=== PATIENT | male | born 1985 | race Caucasian/White ===

== ENCOUNTER 2022-02-25 10:03 | Emergency (ER) | payer OTHER, SELFPAY ==
[2022-02-25 10:56] VITALS: BP 140/88; PULSE 105; RESP 18; TEMP 36.7; O2SAT 99
--- NOTE | 2022-02-25 11:24 | ED.GENADULT ---
HPI - General Adult General Chief complaint: Upper Respiratory Infection Stated complaint: sorethroat Time Seen by Provider: 02/25/22 11:24 Source: patient Mode of arrival: ambulatory Limitations: no limitations History of Present Illness HPI narrative: [age] year old male patient presents to [facility] painful sore throat spray yesterday afternoon off with some congestion. Patient states sore throat with corresponding o'clock this morning. Denies any fevers that he is aware of. Denies any chest pain, shortness of breath. Denies any nausea, vomiting or diarrhea. Denies any abdominal pain. Patient states he was vaccinated for COVID and influenza. Related Data Allergies Allergy/AdvReac Type Severity Reaction Status Date / Time No Known Allergies Allergy Verified 02/25/22 10:58 Review of Systems Review of Systems: CONSTITUTIONAL: Denies fever, chills, or sweats. EYES: Denies visual changes, redness, or discharge. ENT: Denies rhinorrhea, Positivecongestion, positive sore throat, denies otalgia. CARDIOVASCULAR: Denies chest pain, palpitations, or edema. RESPIRATORY: Denies cough or dyspnea. GASTROINTESTINAL: Denies abdominal pain, nausea, vomiting, or diarrhea. GENITOURINARY: Denies dysuria or hematuria. SKIN: Denies rash or itching. MUSCULOSKELETAL: Denies back pain, joint pain, or myalgia. NEUROLOGIC: Denies headache, numbness, or weakness. PSYCHIATRIC: Denies anxiety or depression. PMFSH Comments At the time of my signature I agree with nursing past medical history, surgical, social, and family history. There is no relevant family history pertinent to the presenting complaint. Exam Narrative: GENERAL: Well-appearing, well-nourished, and in no acute distress. HEAD: Normocephalic, atraumatic. EYES: PERRLA and EOMI. ENT: Nares with erythema and edema noted to the right nare, no rhinorrhea or epistaxis. Mucous membranes moist. posterior pharynx With erythema, no tonsillar enlargement, exudates or lesions present. bilateral TMs are clear no erythema or foreign bodies in the canal. NECK: Supple. No lymphadenopathy CHEST: Clear to auscultation. No respiratory distress. HEART: Regular rate and rhythm. No murmur heard. Normal peripheral pulses. ABDOMEN: Soft, nontender, nondistended, normal active bowel sounds. EXTREMITIES: Normal range of motion. No edema. SKIN: Warm, dry, no rash. NEURO: No focal deficits. Alert and oriented x3. Course Course Level of Care: Express Care Visit Vital Signs Vital signs: Vital Signs Temperature 36.7 C 02/25/22 10:56 Pulse Rate 105 H 02/25/22 10:56 Respiratory Rate 18 02/25/22 10:56 Blood Pressure 140/88 02/25/22 10:56 Pulse Oximetry 99 02/25/22 10:56 Oxygen Delivery Room Air 02/25/22 10:56 Temperature 36.7 C 02/25/22 10:56 Pulse Rate 105 H 02/25/22 10:56 Respiratory Rate 18 02/25/22 10:56 Blood Pressure 140/88 02/25/22 10:56 Pulse Oximetry 99 02/25/22 10:56 Oxygen Delivery Room Air 02/25/22 10:56 Vital signs reviewed. The patient has been informed that they may have pre-hypertension or Hypertension based on a BP reading in the department. I recommend that the patient call the primary care provider listed on their discharge instructions or a physician of their choice this week to arrange follow up for further evaluation of possible pre-hypertension or Hypertension Medical Decision Making MDM Narrative Medical decision making narrative: plan of care for patient is to discharge him home with antibiotics for the strep throat. Patient did test positive for strep in the clinic today. Patient notified about this plan of care Na is in agreement Differential Diagnosis Differential Diagnosis: Differential diagnosis: Allergic rhinitis, chronic sinusitis, tonsillitis, acute sinusitis, infectious mononucleosis, seasonal influenza, pertussis, diphtheria, meningococcal disease, viral syndrome, viral bronchitis, RSV, COVID-19 Vital Signs Vit
== END 2022-02-25 11:36 | disposition home or self-care (01) ==
PROVIDERS: Emergency Provider Nurse Practitioner Family
DX: J02.0 Streptococcal pharyngitis (principal)
CPT/HCPCS: 87880; 99203; G0463